=== PATIENT | female | born 1990 | race Hispanic/Latino ===

== ENCOUNTER 2021-05-17 18:03 | Inpatient (IN) | payer OTHER ==
[~2021-05-17 18:03] MED LIST: Bupivacaine 0.25% HCL 30 ML VIAL ONE
[2021-05-17] MEDS ORDERED: Ibuprofen 800 MG TAB PO PRN (18:36)
[2021-05-17] MEDS ORDERED: Carboprost 250 MCG/ML AMP IM PRN (18:36)
[2021-05-17] MEDS ORDERED: Lidocaine 1% (PF) 30 ML VIAL SC PRN (18:36)
[2021-05-17] MEDS ORDERED: Diphenoxylate HCl/Atropine Tablet PO PRN ×2 (18:36)
[2021-05-17] MEDS ORDERED: Ondansetron PF 4 MG/2 ML Vial IVP PRN (18:36)
[2021-05-17] MEDS ORDERED: Methylergonovine 0.2 MG/ML VIAL IM PRN (18:36)
[2021-05-17] MEDS ORDERED: Misoprostol 200 MCG TAB PR PRN (18:36)
[2021-05-17] MEDS ORDERED: Acetaminophen 500 MG TAB PO PRN (18:36)
[2021-05-17] MEDS ORDERED: hydrALAZINE 20 MG/ML VIAL SLOW IVP PRN (18:36)
[2021-05-17] MEDS ORDERED: Promethazine HCl 25 MG/ML VIAL IM PRN (18:36)
[2021-05-17] MEDS ORDERED: NS w/ Oxytocin 30 units 500 ML IV SCH ×2 (18:45)
[2021-05-17] MEDS ORDERED: Lactated Ringer's 1,000 ML IV SCH (18:45)
[2021-05-17 19:09] VITALS: BMI 33.7
[2021-05-17 19:26] LABS: Hemoglobin 11.5 g/dL (12.0-15.5); Mean Corpuscular HGB CONC 34.3 g/dL (32.0-36.0); Mean Corpuscular Hemoglobin 31.3 pg (27.0-33.0); Mean Corpuscular Volume 91.3 fl (81.6-98.3); Platelet Count 239 10x3/uL (150-450); RBC Distribution Width 13.9 % (11.5-14.5); Red Blood Cell (RBC) Count 3.67 10x6/uL (3.90-5.03); White Blood Cell (WBC) Count 10.6 10x3/uL (3.5-10.5)
[2021-05-17] MEDS: Misoprostol 100 MCG TAB VAG SCH ×2 (19:32→23:25)
[2021-05-17 20:04] LABS: Hep B Surf Ag Non-Reactive S/CO (NonReactive); Syphilis Antibody Nonreactive (Nonreactive); Syphilis Antibody Index 0.05 S/CO (<1.00 Non-Reactive)
[2021-05-17 20:10] LABS: HBSAg Index 0.13 S/CO (0-0.99)
[2021-05-18] MEDS ORDERED: Butorphanol Tartrate 1 MG/ML VIAL SLOW IVP PRN (03:56)
[2021-05-18] MEDS ORDERED: Fentanyl 2 mcg/Bup 0.1% Cadd 100 ML ONE (06:17)
[2021-05-18] MEDS ORDERED: Lactated Ringer's 500 ML IV PRN (06:59)
[2021-05-18] MEDS ORDERED: Naloxone HCl 0.4 mg/ml Vial IVP PRN ×2 (06:59)
[2021-05-18] MEDS ORDERED: diphenhydrAMINE 50 MG/ML VIAL IVP PRN (06:59)
[2021-05-18] MEDS ORDERED: Ondansetron PF 4 MG/2 ML Vial IVP PRN (06:59)
[2021-05-18] MEDS ORDERED: ePHEDrine Sulfate 50 MG/10 ML VIAL SLOW IVP PRN (06:59)
[2021-05-18] MEDS ORDERED: Hydrocerin (Eucerin) Cream 120 gm Jar TOP PRN (06:59)
[2021-05-18] MEDS ORDERED: Acetaminophen 325 MG TAB PO PRN (06:59)
[2021-05-18] MEDS ORDERED: Promethazine HCl 25 MG/ML VIAL IM PRN (06:59)
[2021-05-18] MEDS ORDERED: Fentanyl 2 mcg/Bupivacaine 0.1% Cassette 100 ML EPIDURAL SCH (07:00)
[2021-05-18] MEDS ORDERED: Communication Order-Pharmacy FS SCH (07:00)
[2021-05-18] MEDS ORDERED: Milk Of Magnesia 30 ML UDCUP PO PRN (12:09)
[2021-05-18] MEDS ORDERED: Preparation H Ointment 28 GM TUBE PR PRN (12:09)
[2021-05-18] MEDS ORDERED: Lanolin Ointment 7 GM TUBE TOP PRN (12:09)
[2021-05-18] MEDS ORDERED: Bisacodyl 10 MG SUPP PR PRN (12:09)
[2021-05-18] MEDS ORDERED: hydrALAZINE 20 MG/ML VIAL SLOW IVP PRN (12:09)
[2021-05-18] MEDS ORDERED: Benzocaine-Menthol 82.5 ML CAN TOP PRN (12:09)
[2021-05-18] MEDS: Misoprostol 100 MCG TAB VAG SCH (12:13)
[2021-05-18] MEDS: Ibuprofen 800 MG TAB PO SCH ×2 (14:16→22:31)
[2021-05-18] MEDS: Ferrous Sulfate 325 MG TAB PO SCH (17:37)
[2021-05-18] MEDS: Docusate 100 MG CAP PO SCH (22:31)
[2021-05-19] MEDS: Ibuprofen 800 MG TAB PO SCH ×3 (05:46→21:30)
[2021-05-19] MEDS: Ferrous Sulfate 325 MG TAB PO SCH ×2 (08:22→16:53)
[2021-05-19] MEDS: Docusate 100 MG CAP PO SCH ×2 (08:23→21:30)
[2021-05-19] MEDS: Prenatal Vitamin 1 TAB PO SCH (08:23)
[2021-05-20] MEDS: Ibuprofen 800 MG TAB PO SCH (06:03)
[2021-05-20] MEDS: Prenatal Vitamin 1 TAB PO SCH (08:16)
[2021-05-20] MEDS: Docusate 100 MG CAP PO SCH (08:16)
[2021-05-20] MEDS: Ferrous Sulfate 325 MG TAB PO SCH (08:18)
[2021-05-20 09:43] VITALS: BP 111/55; TEMP 98.8
== END 2021-05-20 12:30 | disposition home or self-care (01) | DRG 807 ==
LOC: CSHLD/OP 18:03 → CSHLD 18:34 → CSHPP 05-18 12:05
PROVIDERS: ADMIT Emergency Medicine; ATTEND Emergency Medicine
PROC: 3E0P7VZ Introduction of Hormone into Female Reproductive, Via Natural or Artificial Opening (ICD-10-PCS; 2021-05-17)
PROC: 10E0XZZ Delivery of Products of Conception, External Approach (ICD-10-PCS; principal; 2021-05-18)
PROC: 3E033VJ Introduction of Other Hormone into Peripheral Vein, Percutaneous Approach (ICD-10-PCS; 2021-05-18)
DX: O99.214 Obesity complicating childbirth (principal); Z37.0 Single live birth; Z3A.39 39 weeks gestation of pregnancy; Z88.0 Allergy status to penicillin; E66.9 Obesity, unspecified
CPT/HCPCS: 51702; 85027; 86780; 86850; 86900; 86901; 87340; J0595; J2590; S0020